=== PATIENT | male | born 1975 | race Caucasian/White ===

== ENCOUNTER 2022-01-05 12:57 | Emergency (ER) | payer OTHER ==
[~2022-01-05] VITALS: Ht 170.2 cm; Wt 81.0 kg
[2022-01-05 13:11] VITALS: BP 184/102
[2022-01-05] MEDS ORDERED: FLUORESCEIN SODIUM 1MG/STRIP BOTHEYE ONE (16:30)
[2022-01-05] MEDS ORDERED: TETRACAINE 0.5% OPHTH DROPS 4ML BOTHEYE ONE (16:30)
[2022-01-05] MEDS ORDERED: DORZ10DR18 OP (17:04)
== END 2022-01-05 17:14 | disposition home or self-care (01) ==
LOC: ER 13:18
DX: H53.8 Other visual disturbances (principal); H40.9 Unspecified glaucoma
CPT/HCPCS: 99283